=== PATIENT | female | born 1980 | race Two or more races ===

== ENCOUNTER 2020-07-31 16:07 | Emergency (ER) | payer OTHER ==
[~2020-07-31] VITALS: Ht 157.5 cm; Wt 124.5 kg
[2020-07-31] MEDS ORDERED: IV NORMAL SALINE 1,000ML 1,000 ML IV ONE (16:45)
[2020-07-31] MEDS ORDERED: ONDANSETRON PF 4 MG/2 ML VIAL. IVP ONE (16:45)
--- NOTE | 2020-07-31 16:50 | PHYS DOC ---
Past History Past Medical History: Arthritis, Fibromyalgia, GERD, Kidney Stones, Migraines, Pancreatitis Additional Past Medical Histor: Empty Sella syndrome. (MONCHO CARD APRN) Past Surgical History: Cholecystectomy, , Tubal ligation Additional Past Surgical Histo: Elective spinal taps (MONCHO CARD APRN) Alcohol Use: None (MONCHO CARD APRN) General Adult EDM: Chief Complaint: NAUSEA/VOMITING/DIARRHEA HPI: HPI: Patient is a 40-year-old female who presents with nausea/vomiting/diarrhea since last night. Patient was seen at her PCPs office prior to arrival and told to come to the emergency room. Patient was given 4 of Zofran at her PCP. Patient reports some dizziness when she goes from sitting to standing.. Patient denies fevers. Denies abdominal pain. Denies cough or chest pain. Patient has a history of pancreatitis and fibromyalgia. (MONCHO CARD APRN) Review of Systems: Review of Systems: Constitutional: Denies fever or chills Eyes: Denies change in visual acuity HENT: Denies nasal congestion or sore throat Respiratory: Denies cough or shortness of breath Cardiovascular: Denies chest pain or edema GI: Denies abdominal pain, Reports nausea, vomiting, diarrhea : Denies dysuria Musculoskeletal: Denies back pain or joint pain Integument: Denies rash Neurologic: Denies headache, focal weakness or sensory changes Endocrine: Denies polyuria or polydipsia Lymphatic: Denies swollen glands Psychiatric: Denies depression or anxiety (MONCHO CARD APRN) Current Medications: Current Meds: Current Medications Medications (Trade) Dose Ordered Sig/Theresa Start Time Stop Time Status Last Admin Dose Admin Ondansetron HCl (Zofran) 4 mg 1X ONCE 07/31/20 16:45 07/31/20 16:46 UNV Sodium Chloride 1,000 ml @ 1,000 mls/hr 1X ONCE 07/31/20 16:45 07/31/20 17:44 UNV (MONCHO CARD APRN) Allergies: Allergies: Allergies Coded Allergies Type Severity Reaction Last Updated Verified Penicillins Allergy Unknown 07/31/20 Yes Sulfa (Sulfonamide Antibiotics) Allergy Unknown 07/31/20 Yes ceftriaxone Allergy Unknown 07/31/20 Yes levofloxacin Allergy Unknown 07/31/20 Yes sulfamethoxazole Allergy Unknown 07/31/20 Yes trimethoprim Allergy Unknown 07/31/20 Yes (MONCHO CARD APRN) Physical Exam: PE: Constitutional: Well developed, well nourished, no acute distress, non-toxic appearance. [] HENT: Normocephalic, atraumatic, bilateral external ears normal, oropharynx moist, no oral exudates, nose normal. [] Eyes: PERRLA, EOMI, conjunctiva normal, no discharge. [] Neck: Normal range of motion, no tenderness, supple, no stridor. [] Cardiovascular:Heart rate regular rhythm, no murmur [] Lungs & Thorax: Bilateral breath sounds clear to auscultation [] Abdomen: Bowel sounds normal, soft, no tenderness, no masses, no pulsatile masses. [] Skin: Warm, dry, no erythema, no rash. [] Back: No tenderness, no CVA tenderness. [] Extremities: No tenderness, no cyanosis, no clubbing, ROM intact, no edema. [] Neurologic: Alert and oriented X 3, normal motor function, normal sensory function, no focal deficits noted. [] Psychologic: Affect normal, judgement normal, mood normal. [] (MONCHO CARD APRN) Current Patient Data: Vital Signs: Vital Signs Date Time Temp Pulse Resp B/P (MAP) Pulse Ox O2 Delivery O2 Flow Rate FiO2 07/31/20 16:15 98.0 95 128/75 (92) 98 (MONCHO CARD APRN) EKG: EKG: [] (MONCHO CARD APRN) Radiology/Procedures: Radiology/Procedures: []PQRS Compliance Statement: One or more of the following individualized dose reduction techniques were utilized for this examination: 1. Automated exposure control 2. Adjustment of the mA and/or kV according to patient size 3. Use of iterative reconstruction technique CT ABDOMEN+PELVIS WO Clinical Indication: Reason: abd pain Comparison: None. Technique: Helical CT imaging of the abdomen and pelvis is performed without IV or oral contrast. Findings: Evaluation of solid organs and bowel is limited without oral and IV contrast, decreasing sensitivity for detection of pathology. Lung bases are clear. Cardiac size normal. Tiny calcified granulomas in the spleen. Cholecystectomy. The liver, pancreas, adrenal glands, and abdominal aorta are normal. There is no perinephric stranding or hydronephrosis. There is at least one punctate nonobstructing calculus in the right kidney. The stomach is unremarkable. There is no dilated small bowel. There is no colon wall thickening. The appendix is normal. There is no abdominal adenopathy or f ree fluid. The urinary bladder is mostly decompressed accentuating the wall thickness. There is a 3.5 cm left ovary functional cyst. Right ovary is unremarkable. The uterus is anteverted. No pelvic free fluid. There is no acute bone abnormality. There is mild degenerative endplate spurring of the thoracolumbar spine. Tiny bone islands of the right sacrum. IMPRESSION: 1. No acute abdominal or pelvic abnormality. 2. Punctate nonobstructing right renal calculus. 3. Small left ovary functional cyst. Electronically signed by: Clay Gamez MD (07/31/2020 7:23 PM) [facility] (MONCHO CARD APRN) Heart Score: C/O Chest Pain: No Risk Factors: Risk Factors: DM, Current or recent (<one month) smoker, HTN, HLP, family history of CAD, obesity. Risk Scores: Score 0 - 3: 2.5% MACE over next 6 weeks - Discharge Home Score 4 - 6: 20.3% MACE over next 6 weeks - Admit for Clinical Observation Score 7 - 10: 72.7% MACE over next 6 weeks - Early Invasive Strategies (MONCHO CARD APRN) Course & Med Decision Making: Course & Med Decision Making Pertinent Labs and Imaging studies reviewed. (See chart for details) [] 40-year female presents with nausea/vomiting/diarrhea since last night. Patient was seen in her PCPs office and referred to the emergency room. Patient was given 4 of Zofran prior to arrival. Fluids ordered for rehydration. Zofran for nausea. Patient is denying pain at this time. All labs are unremarkable. When reassessing patient she reported left-sided flank pain and abdominal pain. CT of abdomen and pelvis ordered to rule out kidney stone or any acute abnormalities. CT of abdomen was negative for any acute abnormalities. Patient most likely has gastroenteritis. Patient given Zofran at home for nausea at home. Patient instructed to follow-up with her PCP if her symptoms continue. Patient given strict return precautions. Patient is appreciative and okay with discharge plan. (MONCHO CARD APRN) Course & Med Decision Making I oversaw on the above date of service of this patient and discussed the care with the MAINTENANCE MECHANIC SUPERVISOR after comprehensive signout was given by off going physician he was able to seen initial HPI, physical exam and ER work-up. I agree with the findings, plan of care, and disposition as documented. Electronically signed, Karey Gonzalez DO (KAREY GONZALEZ DO) Jermain Disclaimer: Jermain Disclaimer: This electronic medical record was generated, in whole or in part, using a voice recognition dictation system. (MONCHO CARD APRN) Departure Departure: Impression: Primary Impression: Nausea & vomiting Qualified Codes: R11.2 - Nausea with vomiting, unspecified Disposition: HOME / SELF CARE / HOMELESS Condition: STABLE Referrals: CICI MTZ MD (PCP) Patient Instructions: Nausea and Vomiting, [id number] Additional Instructions: You were seen in the emergency room for nausea and vomiting. You were given Zofran to help with symptoms. You were also complaining of some left-sided flank pain. CT of your abdomen was negative for kidney stone or acute abnormali ties. All of your lab work was unremarkable. Your urine was negative for an infection. You most likely are suffering from gastroenteritis and your symptoms should resolve within the next 24 hours. If you have an increase in pain or vomiting please return to the emergency room. Otherwise you may follow-up with your PCP for further management. EMERGENCY DEPARTMENT GENERAL DISCHARGE INSTRUCTIONS Thank you for coming to [facility] (ED) today and trusting us with you care. We trust that you had a positivie experience in our Emergency Department. If you wish to speak to the department management, you may call the director at [phone]. YOUR FOLLOW UP INSTRUCTIONS ARE FOLLOWS: 1. Do you have a private Doctor? If you do not have a private doctor, please ask for a resource list of physicians or clinics that may be able to assist you with follow up care. 2. The Emergency Physician has interpreted your x-rays. The X-Ray specialist will also review them. If there is a change in the findings, you will be notified in 48 hours when at all possible. 3. A lab test or culture has been done, your results will be reviewed and you will be notified if you need a change in treatment. ADDITIONAL INSTRUCTIONS AND INFORMATION: 1. Your care today has been supervised by a physician who is specially trained in emergency care. Many problems require more than one evaluation for a complete diagnosis and treatment. We recommend that you schedule your follow up appointment as recommended to ensure complete treatment of you illness or injury. If you are unable to obtain follow up care and continue to have a problem, or if your condition worsens, we recommend that you return to the ED. 2. We are not able to safely determine your condition over the phone nor are we able to give sound medical advice over the phone. For these safety reasons, if you call for medical advice we will ask you to come to the ED for further evaluation. 3. If you have any questions regarding these discharge instructions please call the ED at [phone]. SAFETY INFORMATION: In the interest of safety, wellness, and injury prevention; we encourage you to wear your sealbelt, if you smoke; quite smoking, and we encourage family to use a protective helmet for bicycling and other sporting events that present an increased risk for head injury. IF YOUR SYMPTOMS WORSEN OR NEW SYMPTOMS DEVELOP, OR YOU HAVE CONCERNS ABOUT YOUR CONDITION; OR IF YOUR CONDITION WORSENS WHILE YOU ARE WAITING FOR YOUR FOLLOW UP THAI OINTMENT; EITHER CONTACT YOUR PRIMARY CARE DOCTOR, THE PHYSICIAN WHOSE NAME AND NUMBER YOU WERE GIVEN, OR RETURN TO THE ED IMMEDIATELY. Scripts Ondansetron Hcl (ZOFRAN) 4 Mg Tablet 4 MG PO TID PRN PRN for NAUSEA, #9 TAB Prov: MONCHO CARD APRN 07/31/20 MONCHO CARD APRN July 31, 2020 16:50 KAREY GONZALEZ DO August 01, 2020 05:05
[2020-07-31] MEDS ORDERED: ONDANSETRON PF 4 MG/2 ML VIAL. ONE (17:04)
--- NOTE | 2020-07-31 17:15 | EKG ---
[address] [address] Test Date: 2020-07-31 Test Time: 16:59:46 Pat Name: GAGE TOMAS Department: Room: Gender: F Taco Maker: SANGITA : 1980 Requested By: MONCHO CARD Order Number: [id number] Reading MD: Measurements Intervals [place] Rate: 79 P: 16 MN: 148 QRS: -16 QRSD: 84 T: 21 QT: 372 QTc: 428 Interpretive Statements SINUS RHYTHM LEFTWARD AXIS R-S TRANSITION ZONE IN V LEADS DISPLACED TO THE LEFT OTHERWISE NORMAL ECG RI6.02 No previous ECG available for comparison
[2020-07-31 17:16] LABS: BASO # 0.1 x10^3/uL (0.0-0.2); BASO % 1 % (0-3); EOS # 0.1 x10^3/uL (0.0-0.7); EOS % 1 % (0-3); HEMATOCRIT 43.5 % (36.0-47.0); HEMOGLOBIN 14.5 g/dL (12.0-15.5); LYMPH # 1.9 x10^3/uL (1.0-4.8); LYMPH % 17 % (24-48); MEAN CORPUSCULAR HEMOGLOBIN 28 pg (25-35); MEAN CORPUSCULAR HGB CONC 33 g/dL (31-37); MEAN CORPUSCULAR VOLUME 85 fL (79-100); MONO # 0.6 x10^3/uL (0.0-1.1); MONO % 5 % (0-9); NEUT % 77 % (31-73); PLATELET COUNT 161 x10^3/uL (140-400); RED BLOOD COUNT 5.12 x10^6/uL (3.50-5.40); RED CELL DISTRIBUTION WIDTH 14.3 % (11.5-14.5); WHITE BLOOD COUNT 11.7 x10^3/uL (4.0-11.0)
[2020-07-31 17:28] LABS: CALCIUM 8.9 mg/dL (8.5-10.1); CREATININE 0.8 mg/dL (0.6-1.0); GFR 79.9; POTASSIUM 3.3 mmol/L (3.5-5.1)
[2020-07-31 17:34] LABS: ALBUMIN 4.1 g/dL (3.4-5.0); ALBUMIN/GLOBULIN RATIO 1.1 (1.0-1.7); TOTAL BILIRUBIN 0.6 mg/dL (0.2-1.0); TOTAL PROTEIN 7.8 g/dL (6.4-8.2)
--- NOTE | 2020-07-31 19:25 | RAD ---
PQRS Compliance Statement: One or more of the following individualized dose reduction techniques were utilized for this examinat ion: 1. Automated exposure control 2. Adjustment of the mA and/or kV according to patient size 3. Use of iterative reconstruction technique CT ABDOMEN+PELVIS WO Clinical Indication: Reason: abd pain Comparison: None. Technique: Helical CT imaging of the abdomen and pelvis is performed without IV or oral contrast. Findings: Evaluation of solid organs and bowel is limited without oral and IV contrast, decreasing sensitivity for detection of pathology. Lung bases are clear. Cardiac size normal. Tiny calcified granulomas in the spleen. Cholecystectomy. The liver, pancreas, adrenal glands, and ab dominal aorta are normal. There is no perinephric stranding or hydronephrosis. There is at least one punctate nonobstructing ca lculus in the right kidney. The stomach is unremarkable. There is no dilated small bowel. There is no colon wall thickening. The appendix is normal. There is no abdominal adenopathy or free fluid. The urinary bladder is mostly decompressed accentuating the wall thickness. There is a 3.5 cm left ov lito functional cyst. Right ovary is unremarkable. The uterus is anteverted. No pelvic free fluid. There is no acute bone abnormality. There is mild degenerative endplate spurring of the thoracolumbar spine. Tiny bone islands of the right sacrum. IMPRESSION: 1. No acute abdominal or pelvic abnormality. 2. Punctate nonobstructing right renal calculus. 3. Small left ovary functional cyst. Electronically signed by: Clay Gamez MD (07/31/2020 7:23 PM) [facility]
[2020-07-31 19:31] LABS: AMMONIUM BIURATE PRESENT /HPF; BACTERIA,URINE 0 /HPF (0-FEW); BILIRUBIN,URINE NEG (NEG); CLARITY,URINE CLEAR; COLOR,URINE YELLOW; GLUCOSE,URINE 100 mg/dL (NEG); NITRITE,URINE NEG (NEG); RBC,URINE 0 /HPF (0-2); SQUAMOUS EPITHELIAL CELL,UR OCC /LPF; UROBILINOGEN,URINE 0.2 mg/dL (0.2 mg/dL); WBC,URINE 0 /HPF (0-4)
[2020-07-31] MEDS ORDERED: ONDA4TAB7 PO (20:08)
[2020-07-31] MEDS ORDERED: PROCHLORPERAZINE 10 MG/2 ML VIAL. IV ONE (20:15)
[2020-07-31] MEDS ORDERED: FAMOTIDINE 20 MG/2 ML VIAL IVP ONE (20:15)
[2020-07-31 21:05] VITALS: BP 118/73
== END 2020-07-31 21:05 | disposition home or self-care (01) ==
LOC: ER 16:07
DX: R11.2 Nausea with vomiting, unspecified (principal); K21.9 Gastro-esophageal reflux disease without esophagitis; R42 Dizziness and giddiness; Z88.0 Allergy status to penicillin; Z88.1 Allergy status to other antibiotic agents; Z88.2 Allergy status to sulfonamides; Z90.49 Acquired absence of other specified parts of digestive tract; Z98.51 Tubal ligation status; Z87.442 Personal history of urinary calculi
CPT/HCPCS: 36415; 74176; 80053; 81001; 81025; 83690; 85025; 93005; 96361; 96374; 96375; 99285; J0780; J2405; J3490; J7030

== ENCOUNTER 2020-11-11 19:54 | Inpatient (IN) | payer OTHER ==
[~2020-11-11] VITALS: Ht 157.5 cm; Wt 125.0 kg
[~2020-11-11 19:54] MED LIST: ONDA4TAB7 PO
--- NOTE | 2020-11-11 20:28 | PHYS DOC ---
Past History Past Medical History: Arthritis, Fibromyalgia, GERD, Kidney Stones, Migraines, Pancreatitis Additional Past Medical Histor: Empty Sella syndrome. (BLAYNE OLSON APRN) Past Surgical History: Cholecystectomy, , Tubal ligation Additional Past Surgical Histo: Elective spinal taps (BLAYNE OLSON APRN) Alcohol Use: None (BLAYNE OLSON APRN) General Adult EDM: Chief Complaint: CHEST PAIN HPI: HPI: Patient is a 40-year-old female who presents to the ER with chest pain and shortness of breath with fevers and a nonproductive cough. Patient was diagnosed with COVID-19 today. Patient reports generalized chest pain. She rates it 7 out of 10. It is worse with a deep inspiration and cough. Patient reports shortness of breath is worse with exertion. Patient was noted to be tachycardic in the ER. Her primary care provider is Dr. Guadalupe. (BLAYNE OLSON APRN) Review of Systems: Review of Systems: 14 body systems of the review of systems have been reviewed. See HPI for pertinent positive and negative responses, otherwise all other systems are negative, nonpertinent or noncontributory (BLAYNE OLSON APRN) Allergies: Allergies: Allergies Coded Allergies Type Severity Reaction Last Updated Verified Penicillins Allergy Unknown 11/11/20 Yes Sulfa (Sulfonamide Antibiotics) Allergy Unknown 11/11/20 Yes ceftriaxone Allergy Unknown 11/11/20 Yes levofloxacin Allergy Unknown 11/11/20 Yes sulfamethoxazole Allergy Unknown 11/11/20 Yes trimethoprim Allergy Unknown 11/11/20 Yes (BLAYNE OLSON APRN) Physical Exam: PE: Constitutional: Well developed, well nourished, no acute distress, non-toxic appearance. [] HENT: Normocephalic, atraumatic, bilateral external ears normal, oropharynx moist, no oral exudates, nose normal. [] Eyes: PERRL, EOMI, conjunctiva normal, no discharge. [] Neck: Normal range of motion, no stridor Cardiovascular:Heart rate tachycardic rhythm, no murmur [] Lungs & Thorax: Bilateral breath sounds clear to auscultation [] Abdomen: Bowel sounds normal, soft, no tenderness, no masses, no pulsatile masses. [] Skin: Warm, dry, no erythema, no rash. [] Back: Normal range of motion Extremities: No tenderness, no cyanosis, no clubbing, ROM intact, no edema. [] Neurologic: Alert and oriented X 3, normal motor function, normal sensory function, no focal deficits noted. [] Psychologic: Affect normal, judgement normal, mood normal. [] (BLAYNE OLSON APRN) Current Patient Data: Vital Signs: Vital Signs Date Time Temp Pulse Resp B/P (MAP) Pulse Ox O2 Delivery O2 Flow Rate FiO2 11/11/20 20:14 102.9 123 36 116/67 94 Room Air (BLAYNE OLSON APRN) EKG: EKG: EKG performed by ER staff at 2008 shows sinus tach, no STEMI read by Dr. Roberto. [] (BLAYNE OLSON APRN) Radiology/Procedures: Radiology/Procedures: [] (BLAYNE OLSON APRN) Radiology/Procedures: IMAGING REPORT Signed PATIENT: GAGE TOMAS ACCOUNT: [id number] : 1980 LOCATION: ER AGE: 40 SEX: F EXAM STATUS: REG ER ORD. PHYSICIAN: BLAYNE OLSON APRN REASON: tachy, covid positive, pe r/o, OMNI 350, 100ml PROCEDURE: CT ANGIOGRAPHY CHEST CTA Chest with contrast: Clinical History: Reason: tachy, covid positive, Shortness of breath. Axial helical images of the chest were obtained after the administration of 100 cc of IV Omni 350 and timed appropriately for a pulmonary arterial study. Conventional axial reconstruction was performed in addition to coronal, sagittal and bilateral oblique MIP (maximum intensity projection). This study was ordered to detect possible pulmonary embolism. There are no filling defects to suggest pulmonary embolism. There is patchy opacities throughout the lungs bilaterally. There is multiple calcified granuloma in the mediastinum. The thoracic aorta appears normal. Impression: 1. No evidence of pulmonary embolism. 2. Moderate bilateral pulmonary infiltrates consistent with Covid pneumonia. End impression PQRS Compliance Statement: One or more of the following individualized dose reduction techniques were utilized for this examination: 1. Automated exposure control 2. Adjustment of the mA and/or kV according to patient size 3. Use of iterative reconstruction technique Electronically signed by: Jaime Mcgee III, MD (11/11/2020 10:08 PM) [facility] DICTATED AND SIGNED BY: JAIME MCGEE III, MD DATE: 11/11/202203 CC: CICI MTZ MD; BLAYNE OLSON APRN; DEENA ROBERTO DO ~MTH0 0 (DEENA ROBERTO DO) Heart Score: C/O Chest Pain: Yes HEART Score for Chest Pain: HEART Score for Chest Pain Response (Comments) Value History Slighlty/Non-Suspicious 0 ECG Normal 0 Age < 45 0 Risk Factors 1 or 2 Risk Factors (Obesity) 1 Total 1 Risk Factors: Risk Factors: DM, Current or recent (<one month) smoker, HTN, HLP, family history of CAD, obesity. Risk Scores: Score 0 - 3: 2.5% MACE over next 6 weeks - Discharge Home Score 4 - 6: 20.3% MACE over next 6 weeks - Admit for Clinical Observation Score 7 - 10: 72.7% MACE over next 6 weeks - Early Invasive Strategies (BLAYNE OLSON APRN) C/O Chest Pain: No (DEENA ROBERTO DO) Course & Med Decision Making: Course & Med Decision Making Pertinent Labs and Imaging studies reviewed. (See chart for details) Patient is a 40-year-old female being seen in the ER for chest pain, shortness of breath, fevers, nonproductive cough. Patient is Covid positive. Patient was road tested and he desaturated to 89% on room air. At rest patient is 93 to 95%. Patient is tachycardic in the ER at a rate of 120. Patient's 4PEPS score is 2 but given her history of COVID-19, CT angio was performed to rule out PEs. Work-up in the ER also consisted of the EKG, blood work. Patient was noted to be febrile in the ER. She was given a gram of Tylenol and a liter of normal saline. I discussed patients case with Dr. Roberto and she will assume patient care at this time. [id number] (BLAYNE OLSON APRN) Course & Med Decision Making COVID-19 CRITERIA: The patient was evaluated during the global COVID-19 pandemic, and that diagnosis was suspected/considered upon their initial presentation. Their evaluation, treatment and testing was consistent with current guidelines for patients who present with complaints or symptoms that may be related to COVID-19. Concern for COVID-19 viral pneumonia in the setting of SIRS. Patient drops to 88% on RA with any activity or exertion. Remains mildly tachycardic in the ED and 104. Will admit for further medical management. Patient stable at time of admission and agrees with this plan. I have spoken with the patient and/or caregivers. I have explained the patient's condition, diagnosis and treatment plan based on the information available to me at this time. I have answered the patient's and/or caregivers questions and answered any concerns. The patient and/or caregivers have as good an understanding of the patient's diagnosis, condition and treatment plan as can be expected at this point. The patient has been stabilized within the capability of the emergency department. The patient will be transported for further care and management or will be moved to an observation or inpatient service. I have communicated with the staff or medical practitioner taking over this patient's care. (DEENA ROBERTO DO) Dragon Disclaimer: Dragon Disclaimer: This electronic medical record was generated, in whole or in part, using a voice recognition dictation system. (BLAYNE OLSON APRN) Departure Departure: Impression: Primary Impression: COVID-19 Additional Impressions: Viral pneumonia SIRS (systemic inflammatory response syndrome) Disposition: ADMITTED INPATIENT Admitting Physician: Cici Mtz (DEENA ROBERTO DO) Condition: STABLE Referrals: CICI MTZ MD (PCP) BLAYNE OLSON APRN Nov 11, 2020 20:28 DEENA ROBERTO DO Nov 11, 2020 22:25
[2020-11-11] MEDS ORDERED: IOHEXOL 350 MG/ML 100 ML VIAL. IV ONE (20:30)
[2020-11-11 21:06] LABS: BASO % 0 % (0-3); EOS % 0 % (0-3); HEMATOCRIT 38.7 % (36.0-47.0); HEMOGLOBIN 12.6 g/dL (12.0-15.5); LYMPH # 0.8 x10^3/uL (1.0-4.8); LYMPH % 18 % (24-48); MEAN CORPUSCULAR HEMOGLOBIN 27 pg (25-35); MEAN CORPUSCULAR HGB CONC 33 g/dL (31-37); MEAN CORPUSCULAR VOLUME 84 fL (79-100); MONO # 0.2 x10^3/uL (0.0-1.1); MONO % 6 % (0-9); NEUT # 3.5 x10^3uL (1.8-7.7); NEUT % 77 % (31-73); PLATELET COUNT 108 x10^3/uL (140-400); RED BLOOD COUNT 4.62 x10^6/uL (3.50-5.40); RED CELL DISTRIBUTION WIDTH 14.4 % (11.5-14.5); WHITE BLOOD COUNT 4.5 x10^3/uL (4.0-11.0)
[2020-11-11] MEDS ORDERED: ACETAMINOPHEN 500 MG TABLET PO ONE ×2 (21:18→21:30)
[2020-11-11] MEDS ORDERED: IV NORMAL SALINE 1,000ML 1,000 ML IV ONE ×3 (21:30→23:30)
[2020-11-11 21:55] LABS: CALCIUM 8.2 mg/dL (8.5-10.1); CREATININE 0.8 mg/dL (0.6-1.0); GFR 79.9; POTASSIUM 3.4 mmol/L (3.5-5.1)
[2020-11-11 22:03] LABS: ALBUMIN 3.3 g/dL (3.4-5.0); ALBUMIN/GLOBULIN RATIO 0.9 (1.0-1.7); TOTAL BILIRUBIN 0.4 mg/dL (0.2-1.0)
--- NOTE | 2020-11-11 22:10 | RAD ---
CTA Chest with contrast: Clinical History: Reason: tachy, covid positive, Shortness of breath. Axial helical images of the chest were obtained after the administration of 100 cc of IV Omni 350 and timed appropriately for a pulmonary arterial study. Conventional axial reconstruction was performed in addition to coronal, sagittal and bilateral oblique MIP (maximum intensity projection). This alfred dy was ordered to detect possible pulmonary embolism. There are no filling defects to suggest pulmonary embolism. There is patchy opacities throughout the lungs bilaterally. There is multiple calcified granuloma in the mediastinum. The thoracic aorta appears normal. Impression: 1. No evidence of pulmonary embolism. 2. Moderate bilateral pulmonary infiltrates consistent with Covid pneumonia. End impression PQRS Compliance Statement: One or more of the following individualized dose reduction techniques were utilized for this examinat ion: 1. Automated exposure control 2. Adjustment of the mA and/or kV according to patient size 3. Use of iterative reconstruction technique Electronically signed by: Rhett Billy III, MD (11/11/2020 10:08 PM) [facility]
[2020-11-11 22:47] LABS: % BANDS 4 % (0-9); % LYMPHS 19 % (24-48); % MONOS 6 % (0-10); % SEGS 71 % (35-66)
[2020-11-11 22:48] LABS: PLT ESTIMATE DECREASED (ADEQUATE)
[2020-11-12 00:48] VITALS: BP 113/65
[2020-11-12] MEDS ORDERED: ACET325T21 PO (01:01)
[2020-11-12] MEDS ORDERED: ELECTROLYTE (NON-ICU) PROTOCOL. MC PRN (06:00)
[2020-11-12] MEDS: ACETAMINOPHEN 325 MG TABLET PO PRN ×3 (06:14→16:27)
[2020-11-12 06:24] VITALS: BP 128/78
--- NOTE | 2020-11-12 06:47 | EKG ---
[address] [address] Test Date: 2020-11-12 Test Time: 05:41:21 Pat Name: GAGE TOMAS Department: Room: 120 A Gender: F Hotel Concierge: : 1980 Requested By: BLAYNE OLSON Order Number: [id number] Reading MD: Measurements Intervals [place] Rate: 103 P: 0 SD: 144 QRS: 3 QRSD: 82 T: 41 QT: 328 QTc: 432 Interpretive Statements SINUS TACHYCARDIA QRS(T) CONTOUR ABNORMALITY CONSIDER ANTEROLATERAL MYOCARDIAL DAMAGE POSSIBLY ABNORMAL ECG RI6.01 Compared to ECG 07/31/2020 16:59:46 Sinus rhythm no longer present Left-axis deviation no longer present
[2020-11-12] MEDS ORDERED: ROPI0.5T4 PO (07:27)
[2020-11-12] MEDS ORDERED: ASCO500C PO (07:27)
[2020-11-12] MEDS ORDERED: CHOL10004 PO (07:27)
[2020-11-12] MEDS ORDERED: DULO60CA6 PO (07:27)
[2020-11-12] MEDS ORDERED: ZINC50TA39 PO (07:27)
[2020-11-12] MEDS ORDERED: TOPI100T8 PO (07:27)
[2020-11-12] MEDS ORDERED: ACET125T2 PO (07:27)
[2020-11-12] MEDS ORDERED: ALBU2.5V8 IH (07:27)
[2020-11-12] MEDS ORDERED: SUMA100T4 PO (07:27)
[2020-11-12] MEDS ORDERED: CYCL-331 PO (07:27)
[2020-11-12] MEDS ORDERED: LORA-781 PO (07:27)
[2020-11-12] MEDS ORDERED: IPRATRPIUM/ALBUTEROL 0.5/2.5MG 3 ML NEBU. NEB SCH (08:00)
[2020-11-12] MEDS: AZTREONAM 1 GM in IV NORMAL SALINE 50ML 50 ML IV SCH ×4 (09:08→23:15)
[2020-11-12] MEDS: CHOLECALCIFEROL (VITAMIN D3) 1,000 UNIT TABLET PO SCH (09:09)
[2020-11-12] MEDS: AZITHROMYCIN 250 MG TABLET. PO SCH (09:09)
[2020-11-12] MEDS: ENOXAPARIN ** NOTE DOSE ** SYRINGE SQ SCH ×2 (09:09→21:19)
[2020-11-12 11:02] VITALS: BP 99/55
[2020-11-12] MEDS: IPRATROPIUM/ALBUTEROL 20/100mcg/INH INHALER. INH SCH ×3 (12:30→21:20)
[2020-11-12] MEDS: DEXAMETHASONE SOD PHOS 4 MG/ML VIAL. IVP SCH ×3 (12:31→23:16)
[2020-11-12] MEDS ORDERED: ALBUTEROL SULFATE 8GM INHALER. INH PRN (13:00)
[2020-11-12] MEDS ORDERED: SUMAtriptan SUCCINATE 50 MG TABLET PO PRN (13:15)
[2020-11-12] MEDS: HYDROcodone/APAP 7.5/325MG 1 TAB TABLET PO PRN ×2 (13:20→21:19)
[2020-11-12 15:20] VITALS: BP 102/60
[2020-11-12] MEDS ORDERED: REMDESIVIR LOAD in IV NORMAL SALINE 250ML TV IV ONE (17:15)
--- NOTE | 2020-11-12 18:46 | HP ---
HISTORY OF PRESENT ILLNESS: The patient is a 40-year-old female who over the last week has been having increased shortness of breath, fever, chills, achiness and severe bronchospasm, unable to move because of the severity of the pain. She has got progressively worse. She has been diagnosed with COVID-19 and tried to be treated as an outpatient; however, it got progressively worse and the patient was increasingly short of breath and tachycardic as well as tachypneic. Rates her pain about 7-10. The patient notes it is worse when she tries to move and she has extreme shortness of breath with just any type of movement. PAST MEDICAL HISTORY: Includes asthma, arthritis, migraines, hypothyroidism, , tubal ligation and history of sepsis. FAMILY HISTORY: Unremarkable. ALLERGIES: SIGNIFICANT FOR PENICILLIN, FACTIVE, MORPHINE, SULFA, LEVAQUIN, ROCEPHIN, TRIMETHOPRIM. SOCIAL HISTORY: The patient denies smoking, alcohol or drug use. REVIEW OF SYSTEMS: The patient does have a headache. Denies any visual change, mild nausea, severe achiness and pain throughout her body. The patient otherwise difficulty breathing, shortness of breath, tachypneic, cannot take a deep breath without coughing. Denies abdominal pain per se. No nausea or vomiting. No problems with bowel or system. PHYSICAL EXAMINATION: GENERAL: This is a pleasant white female. She is in extreme distress. VITAL SIGNS: Blood pressure 116/70, respiratory rate 36-40, pulse anywhere from 123-120, temperature 102.9, oxygen saturation on room air anywhere from 90-94%. The patient is noted as quite miserable. HEAD: Atraumatic, normocephalic. EYES: PERRLA. MOUTH AND THROAT: Normal. NECK: Supple. LUNGS: Diminished throughout, poor movement of air. CARDIOVASCULAR: Tachycardic. ABDOMEN: Protuberant, soft, nontender. EXTREMITIES: No clubbing, cyanosis. Just generalized achiness. NEUROLOGIC: Alert and oriented x 3. Speech fluent, spontaneous, only interrupted by her amount of pain that she was in. CT scan as noted earlier demonstrates a problem with bilateral infiltrates consistent with COVID-19 pneumonia. LABORATORY DATA: Significant for low platelet count of 108, white count 4.5, hemoglobin 12.6 and 38. Sodium and potassium 140 and 3.4, glucose 100, calcium slightly low at 8.2, slight elevation of liver enzymes of 40, albumin 3.3. The patient will be admitted, placed on IV remdesivir. IMPRESSION AND PLAN: Acute respiratory failure, possible sepsis, COVID-19 pneumonia, tachypnea, thrombocytopenia, moderate protein malnutrition, elevated liver enzymes. I have ordered remdesivir, trying to get it approved by pharmacy; it has just been started. We will also do comfort measures, continue to monitor the patient carefully, start her on Lovenox, hydrocodone for her generalized pain as she is very limited because of the multiplicity of her allergies, hard to find antibiotics as well as other pain medications that will help this individual. BELLA DR: Dora TID: [id number]
[2020-11-12 21:02] VITALS: BP 99/55
[2020-11-12] MEDS: CYCLOBENZAPRINE 10 MG TABLET. PO SCH (21:18)
[2020-11-12] MEDS: TOPIRAMATE 100 MG TABLET. PO SCH (21:19)
[2020-11-12] MEDS: rOPINIRole 0.5 MG TABLET. PO SCH (21:19)
[2020-11-12] MEDS: acetaZOLAMIDE 250 MG TABLET PO SCH (21:21)
[2020-11-12] MEDS: ONDANSETRON ODT 4 MG TAB.RAPDIS PO PRN (23:15)
[2020-11-12 23:27] VITALS: BP 124/77
[2020-11-13] MEDS: AZTREONAM 1 GM in IV NORMAL SALINE 50ML 50 ML IV SCH ×4 (05:26→23:55)
[2020-11-13] MEDS: DEXAMETHASONE SOD PHOS 4 MG/ML VIAL. IVP SCH ×4 (05:26→23:55)
[2020-11-13] MEDS: HYDROcodone/APAP 7.5/325MG 1 TAB TABLET PO PRN ×3 (05:27→21:17)
[2020-11-13 05:53] VITALS: BP 129/77
[2020-11-13] MEDS: ONDANSETRON ODT 4 MG TAB.RAPDIS PO PRN (05:53)
[2020-11-13] MEDS: acetaZOLAMIDE 250 MG TABLET PO SCH ×2 (07:52→21:20)
[2020-11-13] MEDS: TOPIRAMATE 100 MG TABLET. PO SCH ×2 (07:52→21:17)
[2020-11-13] MEDS: IPRATROPIUM/ALBUTEROL 20/100mcg/INH INHALER. INH SCH ×4 (07:52→21:17)
[2020-11-13] MEDS: rOPINIRole 0.5 MG TABLET. PO SCH ×3 (07:52→21:17)
[2020-11-13] MEDS: CHOLECALCIFEROL (VITAMIN D3) 1,000 UNIT TABLET PO SCH (07:52)
[2020-11-13] MEDS: AZITHROMYCIN 250 MG TABLET. PO SCH (07:52)
[2020-11-13] MEDS: ZINC SULFATE 220 MG CAPSULE. PO SCH (07:53)
[2020-11-13] MEDS: ENOXAPARIN ** NOTE DOSE ** SYRINGE SQ SCH ×2 (07:53→21:19)
[2020-11-13] MEDS: ASCORBIC ACID 500 MG TABLET PO SCH (07:53)
[2020-11-13 07:57] LABS: BASO % 0 % (0-3); EOS % 0 % (0-3); HEMATOCRIT 34.8 % (36.0-47.0); HEMOGLOBIN 11.4 g/dL (12.0-15.5); LYMPH # 0.5 x10^3/uL (1.0-4.8); LYMPH % 7 % (24-48); MEAN CORPUSCULAR HEMOGLOBIN 27 pg (25-35); MEAN CORPUSCULAR HGB CONC 33 g/dL (31-37); MEAN CORPUSCULAR VOLUME 84 fL (79-100); MONO # 0.2 x10^3/uL (0.0-1.1); MONO % 3 % (0-9); NEUT # 6.5 x10^3uL (1.8-7.7); NEUT % 90 % (31-73); PLATELET COUNT 115 x10^3/uL (140-400); RED BLOOD COUNT 4.16 x10^6/uL (3.50-5.40); RED CELL DISTRIBUTION WIDTH 14.6 % (11.5-14.5); WHITE BLOOD COUNT 7.2 x10^3/uL (4.0-11.0)
[2020-11-13] MEDS ORDERED: CHOLECALCIFEROL (VITAMIN D3) 1,000 UNIT TABLET PO SCH (09:00)
[2020-11-13] MEDS ORDERED: DULoxetine HCL 60 MG CAPSULE.DR PO SCH (09:00)
[2020-11-13 10:49] VITALS: BP 118/70
[2020-11-13 15:15] VITALS: BP 123/77
[2020-11-13] MEDS: REMDESIVIR 100mg in NORMAL SALINE 250ML X 4 DAYS IV SCH (16:33)
[2020-11-13 20:43] VITALS: BP 111/61
[2020-11-13] MEDS ORDERED: POTASSIUM CHLORIDE 20 MEQ TABLET.ER. PO ONE (21:00)
[2020-11-13] MEDS: DULoxetine HCL 60 MG CAPSULE.DR PO SCH (21:17)
[2020-11-13] MEDS: LACTOBACILLUS RHAMNOSUS GG 1 CAPSULE. PO SCH (21:18)
[2020-11-13] MEDS: CYCLOBENZAPRINE 10 MG TABLET. PO SCH (21:18)
[2020-11-13 23:44] VITALS: BP 108/61
--- NOTE | 2020-11-14 01:53 | PN ---
DATE: 11/13/2020 SUBJECTIVE: A 40-year-old female with acute respiratory failure secondary to COVID-19 pneumonia. The patient is resting fairly comfortably, making some progress and seems to be a little bit improved from yesterday. Coughing is still a problem, but overall she continues to making steady progress. OBJECTIVE: VITAL SIGNS: Blood pressure 120/70, respiratory rate 18, pulse 70, afebrile, 2 liters at 95. GENERAL: The patient is alert and oriented. LUNGS: Diminished throughout, but basically clear than they were before. CARDIOVASCULAR: Regular sinus rhythm. S1, S2, without murmur, rub, thrill or extra heart sounds. ABDOMEN: Soft, nontender. No rebounding, no guarding. Positive bowel sounds, no hepatosplenomegaly was noted. NEUROLOGIC: The patient stable there. IMPRESSION: Acute respiratory failure secondary to COVID-19, possible sepsis, pneumonia, tachypnea, thrombocytopenia, moderate protein malnutrition, elevated liver enzymes. PLAN: Continue with remdesivir, antibiotics and pulmonary toilet. ADALBERTO DR: Dora TID: [id number]
[2020-11-14] MEDS: ONDANSETRON ODT 4 MG TAB.RAPDIS PO PRN (05:40)
[2020-11-14] MEDS: AZTREONAM 1 GM in IV NORMAL SALINE 50ML 50 ML IV SCH ×3 (05:40→18:21)
[2020-11-14] MEDS: DEXAMETHASONE SOD PHOS 4 MG/ML VIAL. IVP SCH ×3 (05:41→18:21)
[2020-11-14] MEDS: HYDROcodone/APAP 7.5/325MG 1 TAB TABLET PO PRN ×3 (05:41→17:20)
[2020-11-14 05:59] VITALS: BP 11/70
[2020-11-14 06:58] LABS: ALBUMIN 2.7 g/dL (3.4-5.0); ALBUMIN/GLOBULIN RATIO 0.7 (1.0-1.7); CALCIUM 7.9 mg/dL (8.5-10.1); CREATININE 0.8 mg/dL (0.6-1.0); GFR 79.9; POTASSIUM 3.4 mmol/L (3.5-5.1); TOTAL BILIRUBIN 0.1 mg/dL (0.2-1.0); TOTAL PROTEIN 6.4 g/dL (6.4-8.2)
[2020-11-14] MEDS: IPRATROPIUM/ALBUTEROL 20/100mcg/INH INHALER. INH SCH ×4 (08:01→19:33)
[2020-11-14] MEDS: ASCORBIC ACID 500 MG TABLET PO SCH (08:02)
[2020-11-14] MEDS: AZITHROMYCIN 250 MG TABLET. PO SCH (08:02)
[2020-11-14] MEDS: ZINC SULFATE 220 MG CAPSULE. PO SCH (08:02)
[2020-11-14] MEDS: LACTOBACILLUS RHAMNOSUS GG 1 CAPSULE. PO SCH ×2 (08:02→19:33)
[2020-11-14] MEDS: ENOXAPARIN ** NOTE DOSE ** SYRINGE SQ SCH ×2 (08:02→19:32)
[2020-11-14] MEDS: CHOLECALCIFEROL (VITAMIN D3) 1,000 UNIT TABLET PO SCH (08:02)
[2020-11-14] MEDS: TOPIRAMATE 100 MG TABLET. PO SCH ×2 (08:02→19:33)
[2020-11-14] MEDS: acetaZOLAMIDE 250 MG TABLET PO SCH ×2 (08:03→19:32)
[2020-11-14 10:58] VITALS: BP 127/78
[2020-11-14 15:30] VITALS: BP 110/73
[2020-11-14] MEDS: REMDESIVIR 100mg in NORMAL SALINE 250ML X 4 DAYS IV SCH (17:14)
[2020-11-14] MEDS: rOPINIRole 0.5 MG TABLET. PO SCH ×2 (17:14→19:32)
[2020-11-14 19:14] VITALS: BP 121/72
[2020-11-14] MEDS: CYCLOBENZAPRINE 10 MG TABLET. PO SCH (19:32)
[2020-11-14] MEDS: DULoxetine HCL 60 MG CAPSULE.DR PO SCH (19:32)
[2020-11-14 23:57] VITALS: BP 121/72
[2020-11-15] MEDS: AZTREONAM 1 GM in IV NORMAL SALINE 50ML 50 ML IV SCH ×5 (00:35→23:56)
[2020-11-15] MEDS: DEXAMETHASONE SOD PHOS 4 MG/ML VIAL. IVP SCH ×4 (00:35→21:49)
[2020-11-15] MEDS: HYDROcodone/APAP 7.5/325MG 1 TAB TABLET PO PRN ×4 (00:35→17:34)
--- NOTE | 2020-11-15 03:08 | PN ---
SUBJECTIVE: A 40-year-old female in with acute respiratory failure secondary to pneumonia secondary to COVID-19 pneumonia. Says she is feeling a little better, still severe bronchospasm, but making progress. OBJECTIVE: VITAL SIGNS: Blood pressure 120/70, respiratory rate 20, pulse 80, afebrile, 2 liters at 96. GENERAL: The patient is alert and oriented with deep cough. LUNGS: Diminished but clear. CARDIOVASCULAR: stable. ABDOMEN: Soft. IMPRESSION: As noted acute respiratory failure secondary to COVID-19 pneumonia, sepsis, tachypnea, thrombocytopenia, moderate protein malnutrition, elevated liver enzymes. PLAN: Continue with present drug regimen, taper down off the Decadron. ALBINA/LAURA DR: ALBINA/merline TID: [id number]
[2020-11-15 06:05] VITALS: BP 129/74
[2020-11-15] MEDS: TOPIRAMATE 100 MG TABLET. PO SCH ×2 (08:23→21:50)
[2020-11-15] MEDS: CHOLECALCIFEROL (VITAMIN D3) 1,000 UNIT TABLET PO SCH (08:23)
[2020-11-15] MEDS: AZITHROMYCIN 250 MG TABLET. PO SCH (08:23)
[2020-11-15] MEDS: ENOXAPARIN ** NOTE DOSE ** SYRINGE SQ SCH ×2 (08:23→21:49)
[2020-11-15] MEDS: IPRATROPIUM/ALBUTEROL 20/100mcg/INH INHALER. INH SCH ×4 (08:23→20:00)
[2020-11-15] MEDS: LACTOBACILLUS RHAMNOSUS GG 1 CAPSULE. PO SCH ×2 (08:23→21:50)
[2020-11-15] MEDS: acetaZOLAMIDE 250 MG TABLET PO SCH ×2 (08:24→21:49)
[2020-11-15] MEDS: ZINC SULFATE 220 MG CAPSULE. PO SCH (08:24)
[2020-11-15] MEDS: ASCORBIC ACID 500 MG TABLET PO SCH (08:24)
[2020-11-15 11:16] VITALS: BP 133/77
[2020-11-15 15:32] VITALS: BP 132/74
[2020-11-15] MEDS: rOPINIRole 0.5 MG TABLET. PO SCH ×2 (16:46→21:50)
[2020-11-15] MEDS: REMDESIVIR 100mg in NORMAL SALINE 250ML X 4 DAYS IV SCH (16:46)
[2020-11-15 18:52] VITALS: BP 122/72
[2020-11-15] MEDS: CYCLOBENZAPRINE 10 MG TABLET. PO SCH (21:49)
[2020-11-15] MEDS: DULoxetine HCL 60 MG CAPSULE.DR PO SCH (21:50)
[2020-11-15 22:45] VITALS: BP 138/86
[2020-11-16] MEDS: HYDROcodone/APAP 7.5/325MG 1 TAB TABLET PO PRN ×4 (01:22→19:17)
--- NOTE | 2020-11-16 04:32 | PN ---
SUBJECTIVE: In with respiratory failure secondary to COVID-19 pneumonia. She is resting comfortably, still in quite a bit of pain and still severe coughing, although she says she feels a smidgen better. OBJECTIVE: VITAL SIGNS: The patient's blood pressure is 130/70, respiratory rate ____, pulse 80, afebrile. She is on 1 liter at 96% nasal cannula, so she is doing better there. GENERAL: The patient is alert and oriented. LUNGS: Show coarse breath sounds throughout. CARDIOVASCULAR: Regular sinus rhythm, S1, S2. ABDOMEN: Soft, protuberant. EXTREMITIES: No clubbing, cyanosis or edema. NEUROLOGIC: She is intact. LABORATORY DATA: Her potassium ____ 3.4. Albumin has gone down to 2.7. ASSESSMENT AND PLAN: We will go ahead and continue present drug regimen. She is on remdesivir, Azactam, azithromycin and we will make adjustments on her dexamethasone since she seems to be breathing a little better to reduce the effects on sugar. Otherwise, she continues to make good progress and is feeling somewhat better. ALBINA/JOURDAN/VENANCIO DR: ALBINA/emrline TID: [id number]
[2020-11-16] MEDS: AZTREONAM 1 GM in IV NORMAL SALINE 50ML 50 ML IV SCH ×4 (05:55→23:27)
[2020-11-16 06:00] VITALS: BP 144/87
[2020-11-16] MEDS: LACTOBACILLUS RHAMNOSUS GG 1 CAPSULE. PO SCH ×2 (08:00→20:37)
[2020-11-16] MEDS: AZITHROMYCIN 250 MG TABLET. PO SCH (08:00)
[2020-11-16] MEDS: IPRATROPIUM/ALBUTEROL 20/100mcg/INH INHALER. INH SCH ×4 (08:00→20:00)
[2020-11-16] MEDS: TOPIRAMATE 100 MG TABLET. PO SCH ×2 (08:00→20:38)
[2020-11-16] MEDS: ASCORBIC ACID 500 MG TABLET PO SCH (08:00)
[2020-11-16] MEDS: CHOLECALCIFEROL (VITAMIN D3) 1,000 UNIT TABLET PO SCH (08:00)
[2020-11-16] MEDS: ZINC SULFATE 220 MG CAPSULE. PO SCH (08:00)
[2020-11-16] MEDS: acetaZOLAMIDE 250 MG TABLET PO SCH ×2 (08:01→20:38)
[2020-11-16] MEDS: DEXAMETHASONE SOD PHOS 4 MG/ML VIAL. IVP SCH ×3 (08:01→20:37)
[2020-11-16] MEDS: ENOXAPARIN ** NOTE DOSE ** SYRINGE SQ SCH ×2 (08:01→20:37)
[2020-11-16 11:08] VITALS: BP 133/82
[2020-11-16 16:15] VITALS: BP 135/78
[2020-11-16] MEDS: rOPINIRole 0.5 MG TABLET. PO SCH ×2 (17:08→20:37)
[2020-11-16] MEDS: REMDESIVIR 100mg in NORMAL SALINE 250ML X 4 DAYS IV SCH (18:09)
[2020-11-16 19:36] VITALS: BP 144/75
[2020-11-16] MEDS: CYCLOBENZAPRINE 10 MG TABLET. PO SCH (20:37)
[2020-11-16] MEDS: DULoxetine HCL 60 MG CAPSULE.DR PO SCH (20:38)
--- NOTE | 2020-11-16 23:17 | PN ---
SUBJECTIVE: A 40-year-old female in with COVID-19 pneumonia, acute respiratory failure, sepsis. The patient is resting fairly comfortably, making fairly good progress, feels better, still coughing, but definitely improved. OBJECTIVE: VITAL SIGNS: Blood pressure 135/78, respiratory rate 20, pulse 70, afebrile, 94% on room air. GENERAL: The patient is alert and oriented, seems to have more energy. LUNGS: Diminished but clear. CARDIOVASCULAR: Regular sinus rhythm. S1, S2. ABDOMEN: Soft, nontender, no rebound or guarding. Positive bowel sounds. No hepatosplenomegaly was noted. NEUROLOGIC: The patient seems to be making good progress in her recovery just taking some time as indicated. LABORATORY DATA: Platelets are coming up slightly as well. IMPRESSION: Sepsis, COVID-19 pneumonia with acute respiratory failure, thrombocytopenia, anemia of chronic disease, hypokalemia, severe protein malnutrition. PLAN: Continue to monitor carefully and make adjustments on her medications as indicated. MATY DR: Dora TID: [id number]
[2020-11-16 23:56] VITALS: BP 142/87
[2020-11-17] MEDS: AZTREONAM 1 GM in IV NORMAL SALINE 50ML 50 ML IV SCH ×4 (05:49→23:50)
[2020-11-17] MEDS: HYDROcodone/APAP 7.5/325MG 1 TAB TABLET PO PRN ×3 (05:49→23:51)
[2020-11-17 06:25] VITALS: BP 120/75
[2020-11-17] MEDS: IPRATROPIUM/ALBUTEROL 20/100mcg/INH INHALER. INH SCH ×4 (08:00→20:22)
[2020-11-17] MEDS: LACTOBACILLUS RHAMNOSUS GG 1 CAPSULE. PO SCH ×2 (08:40→20:22)
[2020-11-17] MEDS: DEXAMETHASONE SOD PHOS 4 MG/ML VIAL. IVP SCH ×3 (08:40→20:22)
[2020-11-17] MEDS: TOPIRAMATE 100 MG TABLET. PO SCH ×2 (08:40→20:23)
[2020-11-17] MEDS: ZINC SULFATE 220 MG CAPSULE. PO SCH (08:40)
[2020-11-17] MEDS: ASCORBIC ACID 500 MG TABLET PO SCH (08:40)
[2020-11-17] MEDS: AZITHROMYCIN 250 MG TABLET. PO SCH (08:40)
[2020-11-17] MEDS: acetaZOLAMIDE 250 MG TABLET PO SCH ×2 (08:41→20:22)
[2020-11-17] MEDS: ENOXAPARIN ** NOTE DOSE ** SYRINGE SQ SCH ×2 (08:41→20:23)
[2020-11-17] MEDS: CHOLECALCIFEROL (VITAMIN D3) 1,000 UNIT TABLET PO SCH (08:41)
[2020-11-17] MEDS ORDERED: BENZONATATE 100 MG CAPSULE. PO ONE (09:45)
[2020-11-17 11:44] VITALS: BP 142/91
[2020-11-17] MEDS: BENZONATATE 100 MG CAPSULE. PO SCH ×2 (14:52→20:23)
[2020-11-17 16:29] VITALS: BP 116/71
[2020-11-17] MEDS: rOPINIRole 0.5 MG TABLET. PO SCH ×2 (17:00→20:23)
[2020-11-17] MEDS: DULoxetine HCL 60 MG CAPSULE.DR PO SCH (20:22)
[2020-11-17] MEDS: CYCLOBENZAPRINE 10 MG TABLET. PO SCH (20:22)
[2020-11-17 20:30] VITALS: BP 144/81
[2020-11-17 23:55] VITALS: BP 133/82
--- NOTE | 2020-11-18 00:10 | PN ---
SUBJECTIVE: A 40-year-old female with acute respiratory failure, COVID-19 pneumonia, seems to be a little bit more energetic, but still severe bronchospasm, severe coughing spasms. The patient says she feels a little better, but still very weak and still requiring assistance. OBJECTIVE: VITAL SIGNS: Blood pressure 140/90, respiratory rate 20, pulse 70, afebrile, 1 liter and room air 94. GENERAL: The patient otherwise alert and oriented. LUNGS: Diminished, basically clear. CARDIOVASCULAR: Regular sinus rhythm. ABDOMEN: Soft, protuberant. EXTREMITIES: No clubbing, cyanosis or edema. NEUROLOGIC: The patient alert and oriented. PLAN: Continue with present drug regimen. IMPRESSION: Therefore, acute respiratory failure secondary to COVID-19 pneumonia, sepsis, tachypnea, thrombocytopenia, moderate protein malnutrition, elevated liver enzymes. PRIYA DR: Dora TID: [id number]
[2020-11-18] MEDS: AZTREONAM 1 GM in IV NORMAL SALINE 50ML 50 ML IV SCH ×2 (06:10→11:20)
[2020-11-18 06:15] VITALS: BP 142/87
[2020-11-18] MEDS: IPRATROPIUM/ALBUTEROL 20/100mcg/INH INHALER. INH SCH ×2 (07:56→11:20)
[2020-11-18] MEDS: ZINC SULFATE 220 MG CAPSULE. PO SCH (07:57)
[2020-11-18] MEDS: ENOXAPARIN ** NOTE DOSE ** SYRINGE SQ SCH (07:57)
[2020-11-18] MEDS: AZITHROMYCIN 250 MG TABLET. PO SCH (07:57)
[2020-11-18] MEDS: LACTOBACILLUS RHAMNOSUS GG 1 CAPSULE. PO SCH (07:57)
[2020-11-18] MEDS: DEXAMETHASONE SOD PHOS 4 MG/ML VIAL. IVP SCH ×2 (07:57→13:58)
[2020-11-18] MEDS: CHOLECALCIFEROL (VITAMIN D3) 1,000 UNIT TABLET PO SCH (07:57)
[2020-11-18] MEDS: TOPIRAMATE 100 MG TABLET. PO SCH (07:58)
[2020-11-18] MEDS: ASCORBIC ACID 500 MG TABLET PO SCH (07:58)
[2020-11-18] MEDS: acetaZOLAMIDE 250 MG TABLET PO SCH (07:58)
[2020-11-18] MEDS: BENZONATATE 100 MG CAPSULE. PO SCH ×2 (07:58→13:58)
[2020-11-18 10:50] VITALS: BP 117/70
[2020-11-18] MEDS: HYDROcodone/APAP 7.5/325MG 1 TAB TABLET PO PRN (12:05)
[2020-11-18] MEDS ORDERED: AZIT250T6 PO (14:13)
[2020-11-18] MEDS ORDERED: IPRA4AER INH (14:13)
[2020-11-18] MEDS ORDERED: LACT1CAP19 PO (14:13)
[2020-11-18] MEDS ORDERED: METH4TAB2 PO (14:13)
[2020-11-18] MEDS ORDERED: HYDR-2765 PO (14:13)
[2020-11-18] MEDS ORDERED: BENZ-8 PO (14:13)
--- NOTE | 2020-11-19 21:35 | DS ---
DATE OF DISCHARGE: 11/18/2020 HOSPITAL COURSE: A 40-year-old female came in with acute respiratory failure secondary to COVID-19. The patient has been having for the last week increased shortness of breath, fever, chills, achiness, and severe bronchospasm. The patient's bronchospasm was quite severe, fatigue in the individual. The patient was admitted to the hospital and placed on aggressive pulmonary toilet as well as IV remdesivir and IV antibiotic therapy. The patient on Lovenox, Decadron in the usual fashion. The patient made slow but steady progress. Her bronchospasm was quite significant and various medications were attempted to use along with the Decadron, cough suppressants. Her albumin was 2.7, potassium slightly low at 3.4. The patient had a CTA, which demonstrated no PE, but moderate pulmonary infiltrates with COVID pneumonia. In any case, the patient made excellent progress during the rest of her hospitalization and was discharged home. Still weakened obviously, but still made excellent progress considering the situation, warned of the possible deterioration if she did not continue to monitor herself. Continue on antibiotics, tapering dose of prednisone, rest, isolation. IMPRESSION: Acute respiratory failure secondary to pneumonia, COVID-19 pneumonia, sepsis, thrombocytopenia, severe protein malnutrition, hypokalemia, elevated liver enzymes, hyperglycemia. PASHA DR: Dora TID: [id number]
== END 2020-11-18 16:00 | disposition home health service (06) | DRG 871 ==
LOC: ER 19:54 → 1 SOUTH 23:57
PROVIDERS: ADMIT Family Medicine; ATTEND Family Medicine
PROC: XW033E5 Introduction of Remdesivir Anti-infective into Peripheral Vein, Percutaneous Approach, New Technology Group 5 (ICD-10-PCS; principal; 2020-11-12)
DX: A41.89 Other specified sepsis (principal); U07.1 COVID-19; J12.82 Pneumonia due to coronavirus disease 2019; J96.00 Acute respiratory failure, unspecified whether with hypoxia or hypercapnia; E43 Unspecified severe protein-calorie malnutrition; Z68.43 Body mass index [BMI] 50.0-59.9, adult; M79.7 Fibromyalgia; K21.9 Gastro-esophageal reflux disease without esophagitis; G43.909 Migraine, unspecified, not intractable, without status migrainosus; M19.90 Unspecified osteoarthritis, unspecified site; D69.6 Thrombocytopenia, unspecified; E03.9 Hypothyroidism, unspecified; E87.6 Hypokalemia; J45.909 Unspecified asthma, uncomplicated; D63.8 Anemia in other chronic diseases classified elsewhere; Z87.442 Personal history of urinary calculi; Z90.49 Acquired absence of other specified parts of digestive tract; Z88.1 Allergy status to other antibiotic agents; Z88.0 Allergy status to penicillin
CPT/HCPCS: 36415; 71275; 80053; 84484; 85007; 85025; 93005; 94618; J1100; J1650; J3490; J7050; Q0162; Q9967; 99285-25; J7030